=== PATIENT | male | born 1955 | race Two or more races ===

== ENCOUNTER 2018-06-10 02:30 | Emergency (ER) | payer MEDICAID ==
[~2018-06-10] VITALS: Ht 188 cm; Wt 204.1 kg
[2018-06-10 02:36] VITALS: BP 112/37
[2018-06-10] MEDS ORDERED: KETOROLAC TROMETH 60MG/2ML VIAL IM ONE (03:00)
== END 2018-06-10 05:37 | disposition home or self-care (01) ==
LOC: EDBD 02:30 → ER 02:32
DX: G89.11 Acute pain due to trauma (principal); M62.838 Other muscle spasm; M54.5 Low back pain; M54.6 Pain in thoracic spine; M54.2 Cervicalgia; E11.9 Type 2 diabetes mellitus without complications; V49.49XA Driver injured in collision with other motor vehicles in traffic accident, initial encounter; Y93.89 Activity, other specified; Y99.8 Other external cause status; Y92.410 Unspecified street and highway as the place of occurrence of the external cause
CPT/HCPCS: 72040; 72070; 72100; 82962; 96372; 99283; J1885